=== PATIENT | male | born 1990 ===

== ENCOUNTER 2020-09-05 23:27 | Observation (INO) | payer SELFPAY ==
[~2020-09-05] VITALS: Ht 185.4 cm; Wt 100.1 kg
[2020-09-06 00:47] LABS: BASOPHILS ABSOLUTE AUTO 0.06 K/mm3 (0.00-0.23); BASOPHILS PERCENT AUTO 1 % (0-2); EOSINOPHILS ABSOLUTE AUTO 0.13 K/mm3 (0.00-0.68); EOSINOPHILS PERCENT AUTO 1 % (0-6); Hematocrit 45.5 % (37.0-53.0); IMMATURE GRAN ABSOLUTE AUTO 0.04 K/mm3 (0.00-0.10); IMMATURE GRAN PERCENT AUTO 0 % (0-1); LYMPHOCYTES ABSOLUTE AUTO 2.19 K/mm3 (0.84-5.20); LYMPHOCYTES PERCENT AUTO 17 % (21-46); MONOCYTES ABSOLUTE AUTO 1.11 K/mm3 (0.16-1.47); MONOCYTES PERCENT AUTO 9 % (4-13); Mean Corpuscular Volume 85 fL (80-100); Mean Platelet Volume 9.9 fL (9.1-12.4); NEUTROPHILS ABSOLUTE AUTO 9.36 K/mm3 (1.96-9.15); NEUTROPHILS PERCENT AUTO 73 % (41-73); Platelet Count 313 K/mm3 (150-400); RDW Coefficient Variation 12.9 % (11.7-14.2); RDW Standard Deviation 40.2 fL (35.1-46.3); Red Blood Cell Count 5.36 M/mm3 (4.30-5.90); White Blood Cell Count 12.89 K/mm3 (4.00-11.30)
[2020-09-06 00:59] LABS: Alanine Aminotransfer (ALT/SGP 41 U/L (12-78); Albumin, Blood 3.6 g/dL (3.4-5.0); Alk Phos 72 U/L (50-136); Anion Gap 5 mmol/L (6-16); Aspartate Aminotrans (AST/SGOT 18 U/L (12-37); Bilirubin, Total 0.4 mg/dL (0.1-1.0); Blood Urea Nitrogen 8 mg/dL (8-24); Bun/Creatinine Ratio 9.4 (12.0-20.0); CO2, Blood 25 mmol/L (21-32); Calcium, Blood 8.3 mg/dL (8.5-10.1); Chloride, Blood 111 mmol/L (98-108); Creatinine, Blood 0.86 mg/dL (0.60-1.20); Globulin, Blood 3.6 g/dL (2.2-4.0); Glomerular Filtration Rate >60 (60-); Glucose, Blood 87 mg/dL (70-99); Potassium, Blood 3.7 mmol/L (3.5-5.5); Sodium, Blood 141 mmol/L (136-145); Total Protein, Blood 7.2 g/dL (6.4-8.2)
--- NOTE | 2020-09-06 05:32 | NUR ---
SHIFT SUMMARY ASSUMED CARE OF PT AT 0400. PT IS A/OX4. HEART SOUNDS REGULAR, LUNG SOUNDS CLEAR. PT IS INDEPENDNT IN ROOM. PT L SIDE OF THROAT IS SWOLLEN AND HARD. TONSIL ON L SIDE IS SWOLLEN AND RED. PT IS ABLE TO SPEAK CLEARLY BUT HE SAYS IT HURTS TO SWOLLOW. CALL LIGHT IN REACH, BED IN LOWEST POSTION.
--- NOTE | 2020-09-06 17:29 | NUR ---
SHIFT SUMMARY PT AxOx4. PLEASANT AND COOPERATIVE WITH CARE. INDEPENDENT IN THE ROOM. PT RECEIVING IV ABX. SURG CONSULT PENDING WITH DR FORMAN. PT REPORTS THROAT PAIN AT 2. DIET ADVANCED TO SOFT, TOLERATED WELL. PT CURRENTLY RESTING IN BED WITH CALL LIGHT IN REACH. VITALS REVIEWED. CURRENT PLAN IS TO DC TOMORROW IF SURGEON AGREES. PT DENIES ANY FURTHER NEEDS AT THIS TIME.
--- NOTE | 2020-09-07 04:58 | NUR ---
SHIFT SUMMARY ASSUMED CARE OF PT AT 1900. PT IS A/OX4. HEART SOUNDS REGULAR, LUNG SOUNDS CLEAR. PT DENIES PAIN IN THROAT. PT IS INDEPENDENT IN ROOM. PT WAS ABLE TO GET SOME SLEEP THIS SHIFT. CALL LIGHT IN REACH, BED IN LOWEST POSITION.
[2020-09-07] MEDS ORDERED: VISBIOME 112.51 EACH PO (08:29)
[2020-09-07] MEDS ORDERED: AMOCLA875 PO (08:30)
--- NOTE | 2020-09-07 10:15 | NUR ---
PT DISCHARGED FROM THE UNIT. IV REMOVED. MEDICATION CALLED INTO [facility]. PT AMBULATED OFF THE UNIT WITH RN. DISCHARGE INSTRUCTIONS REVIEWED.
--- NOTE | 2020-09-07 10:26 | NUR ---
RX FAXED TO [facility].
== END 2020-09-07 08:50 | disposition home or self-care (01) ==
LOC: ER 23:27 → MEDS 23:28
PROVIDERS: Emergency Medicine; ADMIT Family Medicine
DX: J03.90 Acute tonsillitis, unspecified (principal); Z88.6 Allergy status to analgesic agent; F17.210 Nicotine dependence, cigarettes, uncomplicated
CPT/HCPCS: 70491; 80053; 83605; 85025; 86308; 87081; 87430; 96365; 96366; 96375; 96376; 99284-25; A9270; G0378; J0295; J1100; Q9967